=== PATIENT | male | born 1995 | race African-American/Black ===

== ENCOUNTER 2021-04-09 17:32 | Emergency (ER) | payer MEDICAID ==
[~2021-04-09] VITALS: Ht 170.2 cm; Wt 129.3 kg
[2021-04-09 17:56] VITALS: BP_SYST 150
[2021-04-09] MEDS ORDERED: BACITRACIN 1 GM OINT TP ONE (18:00)
[2021-04-09] MEDS ORDERED: DIPH-TET-PERTUS Vaccine 0.5 ML VIAL (ADACEL) I.M. ONE (18:00)
[2021-04-09 18:39] VITALS: BP_SYST 150
== END 2021-04-09 18:39 ==
LOC: SED 17:32
DX: S63.91XA Sprain of unspecified part of right wrist and hand, initial encounter (principal); S93.601A Unspecified sprain of right foot, initial encounter; S60.221A Contusion of right hand, initial encounter; S60.512A Abrasion of left hand, initial encounter; W18.39XA Other fall on same level, initial encounter; Y93.89 Activity, other specified; Y92.89 Other specified places as the place of occurrence of the external cause; Y99.8 Other external cause status
CPT/HCPCS: 90715; 99284